=== PATIENT | male | born 1960 | race Caucasian/White ===

== ENCOUNTER → 2017-08-07 16:49 | Outpatient (CLI) | payer BC, SELFPAY ==
[2017-08-07 17:25] LABS: Add Manual Diff / Slide Review NO; Basophils Percent Auto 2.1 % (0-2); Eosinophils Percent Auto 19.7 % (2-4); Hematocrit 44.8 % (41-53); Hemoglobin 14.8 g/dL (13.5-17.5); Lymphocytes Percent Auto 23.6 % (25-40); Mean Corpuscular HGB Conc 33.1 % (30-36); Mean Corpuscular Hemoglobin 30.2 PG (26-34); Mean Corpuscular Volume 91.4 fL (80-100); Monocytes Percent Auto 11.5 % (3-14); Neutrophils Absolute Auto 2500 /uL (3000-5900); Neutrophils Percent Auto 43.1 % (50-75); Platelet Count 231 X10^3/uL (150-400); Red Cell Distribution Width 15.7 % (11.6-14.8); White Blood Cell Count 5.7 X10^3/uL (4.5-11.0)
[2017-08-10 12:01] LABS: Immunoglobulin E 95 kU/L (< 115)
== END ==
PROVIDERS: Family Provider Internal Medicine; PCP Internal Medicine; Visit Provider Allergy & Immunology
DX: J45.40 Moderate persistent asthma, uncomplicated (principal)
CPT/HCPCS: 36415; 82785; 85025

== ENCOUNTER → 2018-01-05 14:38 | Outpatient (CLI) | payer BC, SELFPAY ==
[2018-01-05 15:47] LABS: Blood Urea Nitrogen 19 mg/dL (9-20); Calcium 9.3 mg/dL (8.4-10.2); Carbon Dioxide 31 mmol/L (22-32); Chloride 101 mmol/L (98-107); Estimated Glomerular Filt Rate > 60.0 mL/min (>60); Glucose 87 mg/dL (70-100); HEMOLYSIS < 15 (0-50); Potassium 4.7 mmol/L (3.4-5.1); Sodium 143 mmol/L (137-145)
[2018-01-05 16:16] LABS: Prostate Specific Antigen Scrn 0.705 ng/mL (0.1-4.0)
== END ==
PROVIDERS: PCP Internal Medicine; Visit Provider Internal Medicine
DX: I10 Essential (primary) hypertension (principal); Z12.5 Encounter for screening for malignant neoplasm of prostate
CPT/HCPCS: 36415; 80048; G0103

== ENCOUNTER → 2019-02-02 08:41 | Outpatient (CLI) | payer BC, SELFPAY ==
[2019-02-02 11:20] LABS: Alanine Aminotransferase 48 IU/L (<50); Albumin 4.3 g/dL (3.5-5.0); Albumin Globulin Ratio 1.7 (1.0-2.8); Alkaline Phosphatase 97 U/L (38-126); Aspartate Aminotransferase 44 IU/L (17-59); Bilirubin Total 0.9 mg/dL (0.2-1.3); Blood Urea Nitrogen 18 mg/dL (9-20); Calcium 9.2 mg/dL (8.4-10.2); Carbon Dioxide 29 mmol/L (22-32); Chloride 103 mmol/L (98-107); Cholesterol 208 mg/dL (140-199); Estimated Glomerular Filt Rate > 60.0 mL/min (>60); Globulin 2.5 g/dL (1.7-4.1); Glucose 85 mg/dL (70-100); HDL Cholesterol 22 mg/dL (40-60); HEMOLYSIS < 15 (0-50); LDL Cholesterol Calculated 124 mg/dL (<100); Potassium 4.3 mmol/L (3.4-5.1); Sodium 141 mmol/L (137-145); Total Protein 6.8 g/dL (6.3-8.2); Triglycerides 309 mg/dL (35-150)
[2019-02-02 11:50] LABS: Prostate Specific Antigen Scrn 0.493 ng/mL (0.1-4.0)
== END ==
PROVIDERS: PCP Internal Medicine; Visit Provider Internal Medicine
DX: Z13.1 Encounter for screening for diabetes mellitus (principal); Z13.220 Encounter for screening for lipoid disorders; Z13.6 Encounter for screening for cardiovascular disorders; Z12.5 Encounter for screening for malignant neoplasm of prostate; I10 Essential (primary) hypertension
CPT/HCPCS: 36415; 80053; 80061; G0103